=== PATIENT | female | born 1985 | race Caucasian/White ===

== ENCOUNTER 2016-10-23 22:30 | Emergency (ER) | payer OTHER ==
[~2016-10-23] VITALS: Ht 160 cm; Wt 49.7 kg
[~2016-10-23 22:30] MED LIST: NAPR500 PO; VIST50CA PO
[2016-10-23 22:32] VITALS: BP 140/74; PULSE 71; RESP 16; TEMP 97.9; O2SAT 96
[2016-10-24 02:26] VITALS: BP 123/73; PULSE 68; RESP 16; O2SAT 100
[2016-10-24 03:25] LABS: BACTERIA, URINE RARE /hpf; BLOOD, URINE MOD (NEG); COMMENT (UR) CULT NOT INDICATED; CULTURE IF INDICATED CULT NOT INDICATED; GLUCOSE,URINE NEG (NEG); KETONE, URINE NEG (NEG); MUCUS URINE FEW /lpf (OCC); NITRITE,URINE NEG (NEG); PH, URINE 5.5 (5.0-8.5); SQUAMOUS EPITHELIAL CELL URINE 15 /hpf (0-5); URINE COLOR YELLOW (YELLW/STRAW)
[2016-10-24] MEDS ORDERED: cefTRIAXone 250 MG VIAL IM ONE (04:15)
[2016-10-24] MEDS ORDERED: AZITHROMYCIN PWD FOR SUSP 1 GM PACKET PO ONE (04:15)
[2016-10-24] MEDS ORDERED: LIDOCAINE HCL 1% 50 ML VIAL IM ONE (04:15)
--- NOTE | 2016-10-24 04:17 | PD ---
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 She denies having any pain with urinating. She denies having any urinary frequency or urgency. She denies having any new sexual partners. She reports that she is in a monogamous relationship. She reports that they do not use condoms. She reports that her last menstrual cycle was approximately 3 weeks ago. She reports that she last had a Pap smear done approximately 3 years ago. The patient denies any recent fevers, cough, congestion, neck pain, chest pain, shortness of breath, abdominal pain, vomiting, diarrhea, urinary symptoms, or neurologic symptoms. PFS Past Medical History Narrative Medical The patient's past medical history is reportedly significant for anxiety, ovarian cysts. Anxiety: Yes Diminished Hearing: No Reproductive: Yes (OVARIAN CYST) Tetanus Vaccination: Unknown Influenza Vaccination: No ?: Not LMP: 3 WEEKS AGO : 0 Para: 0 Ovarian Cysts: Yes Past Surgical History Narrative Surgical The patient's past surgical history is significant for surgery related to an ovarian cyst, tympanostomy tube placement. Ear Surgery: Yes (TUBES CHILD) Other Surgery: Yes (OVARIAN CYST) Social History Alcohol Use: No Tobacco Use: Yes (08/01 ppd) Substance Use: No Allergies-Medications (Allergen,Severity, Reaction): Coded Allergies: No Known Allergies (Unverified , 10/23/16) Reported Meds & Prescriptions Reported Meds & Active Scripts Active Vistaril (Hydroxyzine Pamoate) 50 Mg Cap 50 Mg PO QID PRN Review of Systems Except as stated in HPI: all other systems reviewed are Neg General / Constitutional: No: Fever Eyes: No: Visual changes HENT: No: Headaches Cardiovascular: No: Chest Pain or Discomfort Respiratory: No: Shortness of Breath Gastrointestinal: No: Abdominal Pain Genitourinary: Positive: Discharge, Vaginal Bleeding, No: Dysuria Musculoskeletal: No: Pain Skin: No Rash Neurologic: No: Weakness Psychiatric: No: Depression Endocrine: No: Polydipsia Hematologic/Lymphatic: No: Easy Bruising Physical Exam Narrative General: The patient is a well-developed well-nourished female in no acute distress. Head and Neck exam: Head is normocephalic atraumatic. Eyes: EOMI, pupils are equal round and reactive to light. Neck: No palpable lymphadenopathy. No nuchal rigidity. Cardiovascular: Regular rate and rhythm without murmurs, gallops, or rubs. Lungs: Clear to auscultation bilaterally. No wheezes, rhonchi, or rales. Abdomen: Soft, without tenderness to palpation in all 4 quadrants of the abdomen. No guarding, rebound, or rigidity. Normal bowel sounds are audible. No tenderness on palpation of McBurney's point. Extremities: No clubbing, cyanosis, or edema. Back: No spinous process tenderness to palpation. No costovertebral angle tenderness to palpation. Neurologic Exam: Grossly nonfocal. Skin Exam: No rash noted. Intact skin that is warm and dry. Gynecologic exam: The patient was placed in the dorsal lithotomy position. Her external genitalia were examined. She had no evidence of rash or lesions. The speculum was placed into her vagina and the cervix was identified. She had a brown thin discharge noted on examination. This was wet prep and culture. No cervical friability. On Bimanual exam: she has cervical motion tenderness on palpation. No adnexal tenderness or prominence noted on palpation. No uterine tenderness or enlargement noted on palpation. Data Data Last Documented VS Vital Signs Date Time Temp Pulse Resp B/P Pulse Ox O2 Delivery O2 Flow Rate FiO2 10/24/16 02:26 68 16 123/73 100 Room Air 10/23/16 22:32 97.9 Orders Gc And Chlamydia Pcr (10/24/16 02:34) Wet Prep Profile (10/24/16 02:34) Urinalysis - C+S If Indicated (10/24/16 02:34) Ed Urine Pregnancytest Poc (10/24/16 02:34) Azithromycin Powd Pack (Zithromax Powd P (10/24/16 04:15) Ceftriaxone Inj (Rocephin Inj) (10/24/16 04:15) Lidocaine 1% Inj (50 Ml) (Xylocaine 1% I (10/24/16 04:15) Labs Laboratory Tests Test 10/24/16 10/24/16 03:00 04:10 Urine Color YELLOW Urine Turbidity HAZY Urine pH 5.5 Urine Specific [place] 1.014 Urine Protein NEG mg/dL Urine Glucose (UA) NEG mg/dL Urine Ketones NEG mg/dL Urine Occult Blood MOD Urine Nitrite NEG Urine Bilirubin NEG Urine Urobilinogen LESS THAN 2.0 MG/DL Urine Leukocyte Esterase NEG Urine RBC 1 /hpf Urine WBC 1 /hpf Urine Squamous Epithelial 15 /hpf Cells Urine Bacteria RARE /hpf Urine Mucus FEW /lpf Microscopic Urinalysis Comment CULT NOT INDICATED Clue Cells (Wet Prep) NONE SEEN Vaginal Trichomonas (Wet Prep) NONE SEEN Vaginal Yeast (Wet Prep) NONE SEEN MDM Medical Decision Making Medical Screen Exam Complete: Yes Emergency Medical Condition: Yes Medical Record Reviewed: Yes Differential Diagnosis Trichomoniasis, versus dysfunctional uterine bleeding, versus started menstrual cycle, versus bacterial vaginosis, versus gonorrhea, versus chlamydia Narrative Course During the course of the patients emergency department visit, the patients history, examination, and differential diagnosis were reviewed with the patient. The patient had IV access obtained and blood work sent for analysis. The patient was placed on a salon customer experience specialist with oximetry and blood pressure monitoring. A bedside test was done and negative. The patient was provided Rocephin 250 IM, Zithromax 1 g by mouth. The patients laboratory studies were reviewed and remarkable for a urinalysis that shows moderate occult blood, rare bacteria, wet prep is negative. The patient is instructed regarding the importance of following up with a porcelain enamel repairer for a Pap smear and reexamination. The patient is given the name of the porcelain enamel repairer on-call for follow-up, . The patient is resting comfortably and feels better, is alert and in no distress. The patients results and examination findings were discussed with the patient. The repeat examination is unremarkable and benign. The history, exam, diagnostic testing, and current condition do not suggest any significant pathology to warrant further testing, continued ED treatment, admission, or surgical evaluation at this point. The vital signs have been stable. The patient does not have uncontrollable pain, intractable vomiting, or other significant symptoms. The patient's condition is stable and appropriate for discharge. The patient will pursue further outpatient evaluation with a primary care physician or other designated or consulting physician as indicated in the discharge instructions. The patient expressed understanding and was agreeable with this plan. Diagnosis Primary Impression: Cervicitis Referrals: Claire Henderson MD 1 week Patient Instructions: Cervicitis (ED), General Instructions Med/Other Pt SpecificInfo: No Meds Exist/No RX given Disposition: 01 DISCHARGE HOME Condition: Stable Azeb Bolivar MD Oct 24, 2016 04:17
[2016-10-24 05:07] VITALS: BP 133/74
[2016-10-24 09:24] LABS: CHLAMYDIA PCR NOT DETECTED (NOT DETECT); NEISSERIA PCR NOT DETECTED (NOT DETECT)
== END 2016-10-24 05:11 | disposition home or self-care (01) ==
LOC: NEPE 22:30
DX: N72 Inflammatory disease of cervix uteri (principal); F17.200 Nicotine dependence, unspecified, uncomplicated; Z86.59 Personal history of other mental and behavioral disorders; Z87.42 Personal history of other diseases of the female genital tract
CPT/HCPCS: 81001; 84703; 87210; 87491; 87591; 96372; 99283; J0696

== ENCOUNTER 2017-01-04 11:16 | Emergency (ER) | payer OTHER ==
[~2017-01-04] VITALS: Ht 160 cm; Wt 45.0 kg
[~2017-01-04 11:16] MED LIST changes: -NAPR500 PO
[2017-01-04 11:18] VITALS: BP 126/78; PULSE 86; RESP 16; TEMP 98.4; O2SAT 100
--- NOTE | 2017-01-04 11:22 | PD ---
HPI . dysuria, urinary changes and flank pain x 1 day Chief Complaint: Flank/Kidney Pain Time Seen by Provider: 11:21 Travel History International Travel<30 days: No Contact w/Intl Traveler<30days: No Traveled to known affect area: No History of Present Illness HPI 31-year-old female with no past medical history other than ovarian cysts here with complaints of dysuria, urinary changes including increased frequency and then some dribbling, along with hesitancy. She also tells me about some right foot pain after a glass fell on her foot a few days ago. She would like us to check this. She does not have a primary care locally and decided to come in for further evaluation of her conditions. She denies any fever or chills. She denies any abdominal pain. She denies any vaginal discharge. She has no other complaints. PFSH Past Medical History Anxiety: Yes Diminished Hearing: No (BILATERAL) Reproductive: Yes (OVARIAN CYST) ?: Unknown LMP: 11/2016 : 0 Para: 0 Ovarian Cysts: Yes Past Surgical History Ear Surgery: Yes (TUBES CHILD) Other Surgery: Yes (OVARIAN CYST) Social History Alcohol Use: No Tobacco Use: Yes (1 PPD) Substance Use: No Allergies-Medications (Allergen,Severity, Reaction): Coded Allergies: No Known Allergies (Unverified , 01/04/17) Reported Meds & Prescriptions Reported Meds & Active Scripts Active Pyridium (Phenazopyridine HCl) 100 Mg Tab 100 Mg PO Q8H PRN 3 Days Ciprofloxacin (Ciprofloxacin HCl) 500 Mg Tab 500 Mg PO BID 7 Days Review of Systems General / Constitutional: No: Fever Eyes: No: Visual changes HENT: No: Headaches Cardiovascular: No: Chest Pain or Discomfort Respiratory: No: Shortness of Breath Gastrointestinal: No: Abdominal Pain Genitourinary: Positive: Urgency, Frequency, Dysuria, Hesitancy, Dribbling, Flank Pain Musculoskeletal: Positive: Pain (right foot pain ) Skin: No Rash Neurologic: No: Weakness Psychiatric: No: Depression Endocrine: No: Polydipsia Hematologic/Lymphatic: No: Easy Bruising Physical Exam Narrative GENERAL: AAO x 3, no acute distress, Well-nourished, well-developed patient. SKIN: Warm and dry. No visible rashes or bruising. HEAD: Normocephalic and atraumatic. EYES: No scleral icterus. No injection or drainage. ENT: No nasal drainage noted. Mucous membranes pink. Airway patent. NECK: Supple, trachea midline. No JVD. CARDIOVASCULAR: Regular rate and rhythm without murmurs, gallops, or rubs. RESPIRATORY: Breath sounds equal bilaterally. No accessory muscle use. No rhonchi or rales. GASTROINTESTINAL: Abdomen soft, nondistended. mild suprapubic tenderness with deep palpation EXTREMITIES: No cyanosis or edema. Right foot no acute abn, no fb seen on inspection, all toes of right foot mobile BACK: Nontender without obvious deformity. No CVA tenderness. PSYCH: AAO x 3, normal affect. Data Data Last Documented VS Vital Signs Date Time Temp Pulse Resp B/P Pulse Ox O2 Delivery O2 Flow Rate FiO2 01/04/17 11:20 86 17 01/04/17 11:18 98.4 126/78 100 Orders Urinalysis - C+S If Indicated (01/04/17 11:22) Ed Urine Pregnancytest Poc (01/04/17 11:23) MDM Medical Decision Making Medical Screen Exam Complete: Yes Emergency Medical Condition: Yes Medical Record Reviewed: Yes Differential Diagnosis UTI, pyelonephritis, less likely nephrolithiasis Narrative Course 31-year-old female here with complaints of what appears to be urine tract infection. I have done a urine test and it is negative. I discussed that she more than likely has a urinary tract infection and recommend treatment with antibiotics. Patient is in agreement with treatment plan. I advised her that if her urine culture comes back positive with a bacteria that is resistant to the current antibiotic prescribed, that we will notify her. In regards to her right foot there is no evidence of a bony abnormality. Toes are mobile. Likely a minor contusion. Patient verbalized understanding of instructions, questions were answered, and thanked me for their care. I advised them if their condition worsens, please return to the nearest emergency room for further care. Diagnosis Primary Impression: UTI (urinary tract infection) Qualified Code: N39.0 - Urinary tract infection without hematuria, site unspecified Additional Impression: Contusion of toe of right foot Qualified Code: S90.121A - Contusion of lesser toe of right foot without damage to nail, initial encounter Patient Instructions: General Instructions Additional Instructions: Please return to emergency department if your symptoms return or worsen. Follow up with your primary care provider. Take medications as prescribed. Please establish and follow up with a primary care provider. Scripts Phenazopyridine (Pyridium)100 Mg [id number] Mg PO Q8H PRN (DYSURIA) 3 Days Ref 0 Prov:Susie Allen MD 01/04/17 Ciprofloxacin 500 Mg [id number] Mg PO BID 7 Days Ref 0 Prov:Susie Allen MD 01/04/17 Disposition: 01 DISCHARGE HOME Condition: Stable Yasmeen Proctor Jan 04, 2017 11:22
[2017-01-04] MEDS ORDERED: CIPR500T2 PO (11:25)
[2017-01-04] MEDS ORDERED: PHEN0.4T PO (11:25)
[2017-01-04 11:51] LABS: BACTERIA, URINE FEW /hpf; BLOOD, URINE LARGE (NEG); COMMENT (UR) CULT NOT INDICATED; CULTURE IF INDICATED CULT NOT INDICATED; GLUCOSE,URINE NEG (NEG); KETONE, URINE NEG (NEG); MUCUS URINE MANY /lpf (OCC); NITRITE,URINE NEG (NEG); PH, URINE 5.5 (5.0-8.5); SQUAMOUS EPITHELIAL CELL URINE 36 /hpf (0-5); URINE COLOR YELLOW (YELLW/STRAW)
== END 2017-01-04 11:46 | disposition home or self-care (01) ==
LOC: NEPD 11:16
DX: N39.0 Urinary tract infection, site not specified (principal); S90.31XA Contusion of right foot, initial encounter; F17.210 Nicotine dependence, cigarettes, uncomplicated; W22.8XXA Striking against or struck by other objects, initial encounter
CPT/HCPCS: 81001; 84703; 99284

== ENCOUNTER 2017-03-26 16:02 | Emergency (ER) | payer OTHER ==
[~2017-03-26] VITALS: Ht 160 cm; Wt 45.5 kg
[~2017-03-26 16:02] MED LIST changes: +CIPR500T2 PO; +PHEN0.4T PO; -VIST50CA PO
[2017-03-26 16:04] VITALS: BP 136/80; PULSE 80; RESP 20; TEMP 98.3; O2SAT 99
== END 2017-03-26 17:06 | disposition left against medical advice (07) ==
LOC: NEPD 16:02
DX: Z01.419 Encounter for gynecological examination (general) (routine) without abnormal findings (principal)
CPT/HCPCS: 99281

== ENCOUNTER 2017-05-11 00:35 | Emergency (ER) | payer OTHER ==
[~2017-05-11] VITALS: Ht 160 cm; Wt 47.5 kg
[2017-05-11 00:36] VITALS: BP 148/86; PULSE 66; RESP 16; TEMP 98.1; O2SAT 99
== END 2017-05-11 01:06 | disposition left against medical advice (07) ==
LOC: NED 00:35
DX: R68.89 Other general symptoms and signs (principal)
CPT/HCPCS: 99281

== ENCOUNTER 2017-10-25 19:40 | Emergency (ER) | payer OTHER ==
[~2017-10-25] VITALS: Ht 160 cm; Wt 50.0 kg
[2017-10-25 20:14] VITALS: BP 132/90; PULSE 84; RESP 18; TEMP 98.4; O2SAT 100
[2017-10-26 00:16] LABS: BACTERIA, URINE RARE /hpf; BILIRUBIN, URINE NEG (NEG); BLOOD, URINE NEG (NEG); GLUCOSE,URINE NEG (NEG); KETONE, URINE NEG (NEG); MUCUS URINE FEW /lpf (OCC); NITRITE,URINE NEG (NEG); PH, URINE 6.5 (5.0-8.5); SQUAMOUS EPITHELIAL CELL URINE 10 /hpf (0-5); URINE COLOR YELLOW (YELLW/STRAW); URINE LEUKOCYTE ESTERASE NEG (NEG)
[2017-10-26] MEDS ORDERED: cefTRIAXone 250 MG VIAL IM ONE (00:30)
[2017-10-26] MEDS ORDERED: AZITHROMYCIN PWD FOR SUSP 1 GM PACKET PO ONE (00:30)
[2017-10-26] MEDS ORDERED: LIDOCAINE HCL 1% 50 ML VIAL IM ONE (00:30)
[2017-10-26] MEDS ORDERED: metroNIDAZOLE 500 MG TAB PO ONE ×2 (00:30→00:45)
--- NOTE | 2017-10-26 00:30 | PD ---
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 She reports the symptoms have been present for a couple weeks. She reports the past day or 2 the discharge has developed a foul odor. She reports she sexually active. Once prior she had GC chlamydia. Last menstruation was 9 days prior. Occasional nausea is reported. No fever or vomiting. PFSH Past Medical History Anxiety: Yes Diminished Hearing: No (BILATERAL) Reproductive: Yes (OVARIAN CYST) ?: Unknown LMP: 10/15/17 : 0 Para: 0 Ovarian Cysts: Yes Past Surgical History Ear Surgery: Yes (TUBES CHILD) Other Surgery: Yes (OVARIAN CYST) Social History Alcohol Use: No Tobacco Use: Yes (1 PPD) Substance Use: No Allergies-Medications (Allergen,Severity, Reaction): Coded Allergies: No Known Allergies (Unverified Adverse Reaction, Unknown, 10/25/17) Reported Meds & Prescriptions Reported Meds & Active Scripts Active Flagyl (Metronidazole) 500 Mg Tab 500 Mg PO BID 7 Days Review of Systems Except as stated in HPI: all other systems reviewed are Neg General / Constitutional: No: Fever Physical Exam Narrative GENERAL: 32-year-old female pleasant well-nourished well-developed Vital Signs Date Time Temp Pulse Resp B/P (MAP) Pulse Ox O2 Delivery O2 Flow Rate FiO2 10/25/17 20:14 98.4 84 18 132/90 (104) 100 SKIN: Warm and dry. HEAD: Atraumatic. Normocephalic. EYES: Pupils equal and round. No scleral icterus. No injection or drainage. ENT: No nasal bleeding or discharge. Mucous membranes pink and moist. NECK: Trachea midline. No JVD. CARDIOVASCULAR: Regular rate and rhythm. RESPIRATORY: No accessory muscle use. Clear to auscultation. Breath sounds equal bilaterally. GASTROINTESTINAL: Abdomen soft, non-tender, nondistended. Hepatic and splenic margins not palpable. MUSCULOSKELETAL: Extremities without clubbing, cyanosis, or edema. No obvious deformities. NEUROLOGICAL: Awake and alert. No obvious cranial nerve deficits. Motor grossly within normal limits. Five out of 5 muscle strength in the arms and legs. Normal speech. PSYCHIATRIC: Appropriate mood and affect; insight and judgment normal. Data Data Last Documented VS Vital Signs Date Time Temp Pulse Resp B/P (MAP) Pulse Ox O2 Delivery O2 Flow Rate FiO2 10/25/17 20:14 98.4 84 18 132/90 (104) 100 Orders Orders Urinalysis - C+S If Indicated (10/25/17 23:08) Ed Urine Pregnancytest Poc (10/25/17 23:08) Azithromycin Powd Pack (Zithromax Powd P (10/26/17 00:30) Ceftriaxone Inj (Rocephin Inj) (10/26/17 00:30) Lidocaine 1% Inj (50 Ml) (Xylocaine 1% I (10/26/17 00:30) Metronidazole (Flagyl) (10/26/17 00:30) Ed Discharge Order (10/26/17 00:33) Metronidazole (Flagyl) (10/26/17 00:45) Labs Laboratory Tests Test 10/25/17 23:13 Urine Color YELLOW Urine Turbidity HAZY Urine pH 6.5 Urine Specific [place] 1.022 Urine Protein NEG mg/dL Urine Glucose (UA) NEG mg/dL Urine Ketones NEG mg/dL Urine Occult Blood NEG Urine Nitrite NEG Urine Bilirubin NEG Urine Urobilinogen 2.0 MG/DL Urine Leukocyte Esterase NEG Urine RBC 1 /hpf Urine WBC 1 /hpf Urine Squamous Epithelial Cells 10 /hpf Urine Bacteria RARE /hpf Urine Mucus FEW /lpf Microscopic Urinalysis Comment CULT NOT INDICATED MDM Medical Decision Making Medical Screen Exam Complete: Yes Emergency Medical Condition: Yes Medical Record Reviewed: Yes Differential Diagnosis urinary tract infection, trichomoniasis, GC chlamydia Narrative Course urinalysis shows no UTI We'll provide empiric coverage Coverage for the patient's significant other discussed w patient. pt has verbalized understanding Diagnosis Primary Impression: Vaginal discharge Referrals: Primary Care Physician [facility] Dept. Med/Other Pt SpecificInfo: No Change to Meds Scripts Metronidazole (Flagyl) 500 Mg Tab 500 MG PO BID for Infection for 7 Days, #14 TAB 0 Refills Prov: Luan Marrero MD 10/26/17 Disposition: 01 DISCHARGE HOME Condition: Stable Luan Marrero MD Oct 26, 2017 00:30
[2017-10-26] MEDS ORDERED: METR-1 PO (00:34)
[2017-10-26] MEDS ORDERED: LIDOCAINE HCL 1% PF 2 ML VIAL ONE (00:44)
== END 2017-10-26 01:07 | disposition home or self-care (01) ==
LOC: NEPD 19:40
DX: N89.8 Other specified noninflammatory disorders of vagina (principal); F17.200 Nicotine dependence, unspecified, uncomplicated
CPT/HCPCS: 81001; 84703; 96372; 99283; J0696

== ENCOUNTER 2017-11-30 11:36 | Emergency (ER) | payer OTHER ==
[~2017-11-30 11:36] MED LIST changes: -CIPR500T2 PO; +METR-1 PO; -PHEN0.4T PO
[2017-11-30 11:39] VITALS: BP 135/95; PULSE 89; RESP 14; TEMP 98.4; O2SAT 99
--- NOTE | 2017-11-30 12:11 | PD ---
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 Said she also noticed some burning with urination. Denies any fever, chest pain, sob, n/v, abdominal pain, focal weakness or numbness. Pt was last here for vaginal discharge 10/25/17 and was empirically treated for STI. Pt said she continue to have sexual intercourse with her boyfriend who did not get treated. Said she broke up with him and now wants to be treated again. PFSH Past Medical History Anxiety: Yes Diminished Hearing: No (BILATERAL) Reproductive: Yes (OVARIAN CYST) Influenza Vaccination: No ?: Unknown LMP: 11/12/2017 : 0 Para: 0 Ovarian Cysts: Yes Past Surgical History Ear Surgery: Yes (TUBES CHILD) Other Surgery: Yes (OVARIAN CYST) Social History Alcohol Use: No Tobacco Use: Yes (1 PPD) Substance Use: No Allergies-Medications (Allergen,Severity, Reaction): Coded Allergies: No Known Allergies (Unverified Adverse Reaction, Unknown, 11/30/17) Reported Meds & Prescriptions Reported Meds & Active Scripts Active No Active Prescriptions or Reported Medications Review of Systems Except as stated in HPI: all other systems reviewed are Neg Physical Exam Narrative GENERAL: 32yo F not in distress. SKIN: Focused skin assessment warm/dry. HEAD: Atraumatic. Normocephalic. CARDIOVASCULAR: Regular rate and rhythm. No murmur appreciated. RESPIRATORY: No accessory muscle use. Clear to auscultation. Breath sounds equal bilaterally. GASTROINTESTINAL: Abdomen soft, non-tender, nondistended.No rebound tenderness or guarding. PELVIC: MUSCULOSKELETAL: No obvious deformities. No clubbing. No cyanosis. No edema. NEUROLOGICAL: Awake and alert. No obvious cranial nerve deficits. Motor grossly within normal limits. Normal speech. PSYCHIATRIC: Appropriate mood and affect; insight and judgment normal. Data Data Last Documented VS Vital Signs Date Time Temp Pulse Resp B/P (MAP) Pulse Ox O2 Delivery O2 Flow Rate FiO2 11/30/17 11:39 98.4 89 14 135/95 (108) 99 Orders Orders Gc And Chlamydia Pcr (11/30/17 12:05) Wet Prep Profile (11/30/17 12:05) Urinalysis - C+S If Indicated (11/30/17 12:05) Ed Urine Pregnancytest Poc (11/30/17 12:05) Azithromycin Powd Pack (Zithromax Powd P (11/30/17 13:00) Ceftriaxone Inj (Rocephin Inj) (11/30/17 13:00) Lidocaine 1% Inj (50 Ml) (Xylocaine 1% I (11/30/17 13:00) Labs Laboratory Tests Test 11/30/17 12:25 11/30/17 12:29 Urine Color YELLOW Urine Turbidity HAZY Urine pH 5.5 Urine Specific [place] 1.023 Urine Protein 30 mg/dL Urine Glucose (UA) NEG mg/dL Urine Ketones NEG mg/dL Urine Occult Blood SMALL Urine Nitrite NEG Urine Bilirubin NEG Urine Urobilinogen 2.0 MG/DL Urine Leukocyte Esterase TRACE Urine RBC 3 /hpf Urine WBC 2 /hpf Urine Squamous Epithelial Cells 20 /hpf Urine Transitional Epithelial Cells <1 /hpf Urine Mucus MANY /lpf Microscopic Urinalysis Comment CULT NOT INDICATED Clue Cells (Wet Prep) NONE SEEN Vaginal Trichomonas (Wet Prep) NONE SEEN Vaginal Yeast (Wet Prep) NONE SEEN MDM Medical Decision Making Medical Screen Exam Complete: Yes Emergency Medical Condition: Yes Differential Diagnosis Bacterial vaginosis vs. chlamydia vs. gonorrhea vs. UTI vs. Narrative Course 32yo F with vaginal discharge intermittently for 2 weeks. Based on pt's history , will empirically treat for gonorrhea/chlamydia. UA showed WBC 2. Squamous 20. Culture not indicated. Wet prep negative. Urine negative. Pt has no abdominal pain. Return precautions given. Diagnosis Primary Impression: Vaginal discharge Patient Instructions: General Instructions Departure Forms: Tests/Procedures Additional Instructions: Please follow up with your city comptroller. Return to the ED if symptoms worsen. Med/Other Pt SpecificInfo: No Change to Meds Scripts No Active Prescriptions or Reported Meds Disposition: 01 DISCHARGE HOME Condition: Stable Lucy Huerta DO November 30, 2017 12:11
[2017-11-30 12:48] LABS: BILIRUBIN, URINE NEG (NEG); BLOOD, URINE SMALL (NEG); GLUCOSE,URINE NEG (NEG); KETONE, URINE NEG (NEG); MUCUS URINE MANY /lpf (OCC); NITRITE,URINE NEG (NEG); PH, URINE 5.5 (5.0-8.5); SQUAMOUS EPITHELIAL CELL URINE 20 /hpf (0-5); TRANSITIONAL EPI CELLS, URINE <1 /hpf; URINE COLOR YELLOW (YELLW/STRAW); URINE LEUKOCYTE ESTERASE TRACE (NEG)
[2017-11-30] MEDS ORDERED: cefTRIAXone 250 MG VIAL IM ONE (13:00)
[2017-11-30] MEDS ORDERED: AZITHROMYCIN PWD FOR SUSP 1 GM PACKET PO ONE (13:00)
[2017-11-30] MEDS ORDERED: LIDOCAINE HCL 1% 50 ML VIAL IM ONE (13:00)
[2017-11-30] MEDS ORDERED: LIDOCAINE HCL 1% 20 ML VIAL ONE (13:08)
== END 2017-11-30 14:00 | disposition home or self-care (01) ==
LOC: NEPD 11:36
DX: N89.8 Other specified noninflammatory disorders of vagina (principal); F17.200 Nicotine dependence, unspecified, uncomplicated
CPT/HCPCS: 81001; 84703; 87210; 87491; 87591; 96372; 99283; J0696

== ENCOUNTER 2017-12-11 12:27 | Emergency (ER) | payer OTHER ==
[~2017-12-11] VITALS: Ht 160 cm; Wt 45.5 kg
[2017-12-11 12:40] VITALS: BP 139/74; PULSE 70; RESP 16; TEMP 98.2; O2SAT 100
--- NOTE | 2017-12-11 13:53 | PD ---
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 The patient made it well known that she has not had any sex for the past 2 weeks and yet she still has this brown discharge. Patient denies any vaginal pain, states that her last menstrual period was about 2 weeks ago. And that she was treated with shot and pills the last time she was here. Patient denies any alleviating or aggravating factors. Patient denies any associated factors such as fever, abdominal pain, flank pain, chest pain or nausea or vomiting PFSH Past Medical History Anxiety: Yes Diminished Hearing: No (BILATERAL) Reproductive: Yes (OVARIAN CYST) ?: Unknown LMP: november 2017 : 0 Para: 0 Ovarian Cysts: Yes Past Surgical History Ear Surgery: Yes (TUBES CHILD) Other Surgery: Yes (OVARIAN CYST) Social History Alcohol Use: No Tobacco Use: Yes (1 PPD) Substance Use: No Allergies-Medications (Allergen,Severity, Reaction): Coded Allergies: No Known Allergies (Unverified Adverse Reaction, Unknown, 11/30/17) Reported Meds & Prescriptions Reported Meds & Active Scripts Active No Active Prescriptions or Reported Medications Physical Exam Narrative GENERAL: SKIN: Warm and dry. HEAD: Atraumatic. Normocephalic. EYES: Pupils equal and round. No scleral icterus. No injection or drainage. ENT: No nasal bleeding or discharge. Mucous membranes pink and moist. NECK: Trachea midline. No JVD. CARDIOVASCULAR: Regular rate and rhythm. RESPIRATORY: No accessory muscle use. Clear to auscultation. Breath sounds equal bilaterally. GASTROINTESTINAL: Abdomen soft, non-tender, nondistended. Hepatic and splenic margins not palpable. MUSCULOSKELETAL: Extremities without clubbing, cyanosis, or edema. No obvious deformities. NEUROLOGICAL: Awake and alert. No obvious cranial nerve deficits. Motor grossly within normal limits. Five out of 5 muscle strength in the arms and legs. Normal speech. PSYCHIATRIC: Appropriate mood and affect; insight and judgment normal. Data Data Last Documented VS Vital Signs Date Time Temp Pulse Resp B/P (MAP) Pulse Ox O2 Delivery O2 Flow Rate FiO2 12/11/17 12:40 98.2 70 16 139/74 (95) 100 Orders Orders Ondansetron Odt (Zofran Odt) (12/11/17 14:00) Metronidazole (Flagyl) (12/11/17 14:00) Ed Discharge Order (12/11/17 14:07) MDM Medical Decision Making Medical Screen Exam Complete: Yes Emergency Medical Condition: Yes Medical Record Reviewed: Yes Differential Diagnosis Dysfunctional uterine bleeding versus PID versus STD related vaginal discharge Narrative Course The patient had a thorough evaluation including a pelvic exam as well as swabs and urinalysis on November 30, 2017. On that date the patient had a negative chlamydia negative gonorrhea Negative yeast Negative trichomonas Negative clue cells UA did not show major evidence of UTI, however he did have some urinary mucus, but without nitrites, bacteria, or leukocyte Patient was advised to follow-up with HYDROLOGY TEACHER for further evaluation, which cannot be accomplished through the emergency department. For instance the patient was advised that no Pap smears or biopsies or brush biopsies can be done in this department, however these are things that are routine for her OB/ [facility] to perform. Patient understood and stated that she will follow-up as recommended Diagnosis Primary Impression: Persistent vaginal discharge Referrals: Claire Miles MD FOR FURTHER EVALUATION OF YOUR PERSISTENT DISCHARGE Patient Instructions: General Instructions, Vaginal Discharge (ED) Additional Instructions: PLEASE PRINT AND PROVIDE TEST RESULTS OF November VISIT LABS. Scripts No Active Prescriptions or Reported Meds Disposition: 01 DISCHARGE HOME Condition: Stable Gabriele Richards MD December 11, 2017 13:52
[2017-12-11] MEDS ORDERED: ONDANSETRON ODT 4 MG TAB PO ONE (14:00)
[2017-12-11] MEDS ORDERED: metroNIDAZOLE 500 MG TAB PO ONE (14:00)
== END 2017-12-11 14:23 | disposition home or self-care (01) ==
LOC: NEPD 12:27
DX: N89.8 Other specified noninflammatory disorders of vagina (principal); F17.200 Nicotine dependence, unspecified, uncomplicated
CPT/HCPCS: 99283